=== PATIENT | male | born 1960 | race Caucasian/White ===

== ENCOUNTER → 2016-06-17 | Outpatient (CLI) | payer OTHER ==
--- NOTE | 2016-06-17 11:04 | DIAGNOSTIC IMAGING REPORT ---
LEFT KNEE 4 OR MORE VIEWS CLINICAL HISTORY: LEFT KNEE PAIN pain COMPARISON: None. DISCUSSION: Mild to moderate degenerative change medial joint compartment and patellofemoral joint. Lateral joint compartment is intact. No significant joint effusion. Minimal osteophytic reaction at the tibial spines. There is no evidence for soft tissue swelling. IMPRESSION: Moderate degenerative change patellofemoral and medial joint compartments. No acute process. Electronically signed by: Pradip Rivera M.D. 06/17/2016 11:03 AM Dictated Date/Time: 06/17/2016 11:03 AM
--- NOTE | 2016-06-17 11:05 | DIAGNOSTIC IMAGING REPORT ---
RIGHT FOOT MIN 3 VIEWS ROUTINE CLINICAL HISTORY: B/L FOOT PAIN Right pain COMPARISON: None. DISCUSSION: Mild degenerative change interphalangeal joints. No additional acute bony and amount. Alignment is anatomic. Cortical margins are intact. There is no evidence for soft tissue swelling. IMPRESSION: Mild degenerative change of the interphalangeal joints. Otherwise negative study Electronically signed by: Pradip Rivera M.D. 06/17/2016 11:04 AM Dictated Date/Time: 06/17/2016 11:03 AM
--- NOTE | 2016-06-17 11:05 | DIAGNOSTIC IMAGING REPORT ---
LEFT FOOT MIN 3 VIEWS ROUTINE CLINICAL HISTORY: LEFT FOOT PAIN pain COMPARISON: None. DISCUSSION: The bones and joint spaces appear intact. There is no evidence of fracture, dislocation or bony disease. There is no evidence for soft tissue swelling. IMPRESSION: Negative study. Electronically signed by: Pradip Rivera M.D. 06/17/2016 11:04 AM Dictated Date/Time: 06/17/2016 11:04 AM
[2016-06-17 12:16] LABS: BASO % 0.5 %; BASO ABS # 0.03 K/uL (0-0.2); COMPLETE YES; EOS % 4.2 %; HEMATOCRIT 44.4 % (42-52); IG% 0.2 %; LYMPH ABS # 1.64 K/uL (1.2-3.4); MEAN CELL VOLUME 89.9 fL (80-100); MEAN CORPUSCULAR HEMOGLOBIN 31.2 pg (25-34); MEAN CORPUSCULAR HGB CONC 34.7 g/dl (32-36); MEAN PLATELET VOLUME 10.4 fL (7.4-10.4); MONO % 10.6 %; NEUT % 54.5 %; PLATELET COUNT 209 K/uL (130-400); RED BLOOD COUNT 4.94 M/uL (4.7-6.1); WHITE BLOOD COUNT 5.47 K/uL (4.8-10.8)
== END | disposition home or self-care (01) ==
LOC: C.RAD 10:08
PROVIDERS: ATTEND Student in an Organized Health Care Education/Training Program
DX: M25.562 Pain in left knee (principal); M79.671 Pain in right foot; M79.672 Pain in left foot; R20.0 Anesthesia of skin; R79.89 Other specified abnormal findings of blood chemistry; K76.0 Fatty (change of) liver, not elsewhere classified; I10 Essential (primary) hypertension

== ENCOUNTER → 2016-06-23 | Outpatient (CLI) | payer OTHER ==
--- NOTE | 2016-06-23 07:59 | DIAGNOSTIC IMAGING REPORT ---
ANKLE BRACHIAL INDEX LIMITED CLINICAL HISTORY: Bilateral foot pain. COMPARISON STUDY: No previous studies for comparison. FINDINGS: Brachial arm systolic pressures measure 110 mmHg on the right and 128 mmHg on the left. Posterior tibial systolic pressures measure 1 35 mmHg in the right and 1 41 mmHg on the left. Dorsalis pedis systolic pressures measure 1 23 mmHg on the right and 125 mmHg on the left. These measurements indicate normal bilateral ankle brachial indices of 1.1 IMPRESSION: Normal study Electronically signed by: Jose Maria Morgan M.D. 06/23/2016 7:58 AM Dictated Date/Time: 06/23/2016 7:57 AM
--- NOTE | 2016-06-23 08:14 | DIAGNOSTIC IMAGING REPORT ---
BILIARY ULTRASOUND CLINICAL HISTORY: Hepatic steatosis COMPARISON STUDY: No previous studies for comparison. FINDINGS: The pancreas appear normal as visualized. The gallbladder appears sonographically normal. There is no ductal dilatation. The common bile duct measured 5 mm. There is no right-sided hydronephrosis. Several renal cysts were visualized, the largest of which measures 1 cm. There is increased hepatic echogenicity, consistent with hepatic steatosis. There is focal fatty sparing adjacent to gallbladder. Three left lobe hepatic cysts were visualized measuring 18 mm, 2 cm and 1 cm respectively. IMPRESSION: 1. Increased hepatic echogenicity, most likely secondary to hepatic steatosis 2. Left lobe hepatic cysts 3. Ultrasonographically normal gallbladder 4. No evidence of ductal dilatation Electronically signed by: Jose Maria Morgan M.D. 06/23/2016 8:12 AM Dictated Date/Time: 06/23/2016 8:10 AM
== END | disposition home or self-care (01) ==
LOC: C.ULTR 06:30
PROVIDERS: ATTEND Student in an Organized Health Care Education/Training Program
DX: R20.0 Anesthesia of skin (principal); R79.89 Other specified abnormal findings of blood chemistry; K76.0 Fatty (change of) liver, not elsewhere classified; K76.89 Other specified diseases of liver

== ENCOUNTER → 2016-08-09 | Outpatient (CLI) | payer OTHER ==
--- NOTE | 2016-08-09 07:40 | DIAGNOSTIC IMAGING REPORT ---
MRI OF THE LEFT KNEE WITHOUT CONTRAST CLINICAL HISTORY: Bilateral knee pain. Evaluate for medial meniscal tears. COMPARISON STUDY: Left knee radiographs June 17, 2016. TECHNIQUE: Utilizing a 1.5 Flory magnet and dedicated coil, multiplanar, multiecho imaging of the left knee was performed without intravenous or intraarticular contrast. FINDINGS: Alignment of the left knee is anatomic. There is a small left knee joint effusion. A few tiny loose bodies are noted within the medial suprapatellar joint space. Extensor mechanism is intact. There is increased signal within the anterior cruciate ligament which is intact. There is slight increased signal within the posterior cruciate ligament without definite tear. The medial collateral ligament and lateral collateral ligament complex are intact. There is severe chondrosis of the patellar cartilage and moderate chondrosis of the cochlea cartilage. There is associated osteophytosis. There is subchondral signal abnormality within the patella. There is also severe moderate to severe chondrosis within the medial compartment and mild chondrosis within the lateral compartment. There is fraying and irregularity of the posterior horn/root junction of the medial meniscus which suggests a tear. No lateral meniscal tear is identified. There is no evidence for fracture. Subchondral signal abnormality within the medial femoral condyle is degenerative. IMPRESSION: 1. 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 2. Irregularity and fraying of the posterior horn/root junction of the medial meniscus which suggests a tear. In addition, there is fraying of the free edge of the medial meniscus. 3. Small left knee joint effusion with a few tiny loose bodies. 4. Increased signal within the anterior cruciate ligament which is intact. This could reflect mucoid degeneration. Electronically signed by: Aleks Hernández M.D. 08/09/2016 7:38 AM Dictated Date/Time: 08/09/2016 7:30 AM
--- NOTE | 2016-08-09 08:01 | DIAGNOSTIC IMAGING REPORT ---
MRI THE RIGHT KNEE NO CONTRAST CLINICAL HISTORY: Right knee pain COMPARISON STUDY: No previous studies for comparison. FINDINGS: The patient was imaged in the sagittal axial and coronal planes. The visualized portions the patellar and quadriceps tendons appear intact. The anterior and posterior cruciate ligaments appear intact. The medial and lateral collateral ligaments appear intact. The patellar retinacular structures appear intact. There are advanced arthritic changes present within the patellofemoral joint. 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 There is chondrosis of the anterior femoral cartilage. There are subchondral cystic changes within the anterior aspect of the lateral femoral condyle. There is extensive mucoid degeneration of the medial meniscus. There is degenerative fraying without evidence of a discrete tear. No tears of the lateral meniscus are visualized. IMPRESSION: 1. Advanced arthritic changes within the patellofemoral joint. Degenerative signal changes within the menisci with evidence of medial meniscal fraying but no evidence of a discrete tear. No evidence of cruciate or collateral ligament disruption. Electronically signed by: Jose Maria Morgan M.D. 08/09/2016 8:00 AM Dictated Date/Time: 08/09/2016 7:53 AM
== END | disposition home or self-care (01) ==
LOC: C.MRI 05:36
PROVIDERS: ATTEND Orthopaedic Surgery
DX: M25.561 Pain in right knee (principal); M25.562 Pain in left knee; M94.8X6 Other specified disorders of cartilage, lower leg; M25.762 Osteophyte, left knee; M25.462 Effusion, left knee

== ENCOUNTER → 2016-09-23 | Outpatient (CLI) | payer OTHER | END | disposition home or self-care (01) | LOC: C.CPL 08:02 | PROVIDERS: ATTEND Orthopaedic Surgery | DX: Z01.810 Encounter for preprocedural cardiovascular examination (principal) ==